=== PATIENT | male | born 1985 | race Caucasian/White ===

== ENCOUNTER → 2023-07-31 | Outpatient (CLI) | payer OTHER ==
[~2023-07-31] MED LIST: SODIUM CHLORIDE ONE; XYLOCAINE ONE
== END | disposition home or self-care (01) ==
LOC: RAD 13:06
PROVIDERS: ATTEND Orthopaedic Surgery Hand Surgery
DX: M25.552 Pain in left hip (principal)
CPT/HCPCS: 73722; 73525 ×2; 27093; J2001 ×2; Q9965 ×2; A9579; 77002